=== PATIENT | female | born 1960 | race Caucasian/White ===

== ENCOUNTER 2018-03-20 14:45 | Observation (INO) | payer OTHER ==
[~2018-03-20 14:45] MED LIST: ALBU0.08 NEB; ALBU0.086 INH; ALBU6.7H INH; AMLO5TAB96 PO; ASPI-94 PO; ATOR20TA PO; ATOR40TA16 PO; BENA20TA PO; COLA100C5 PO; DOCU1CAP39 PO; IBUP1TAB7 PO; IBUP400T20 PO; LORTA10 PO; LORTA5 PO; MILKSUS PO; MILKSUS5 PO; MONT10 PO; MONT10TA4 PO; NEXI10GR PO; NEXI40CA PO; NITR0.4S SL; RANI300T PO; SPIRCAP INH; SYMB160A INH; TIOT18I INH; TRAM50TA PO; TYLE500T PO; VENTAER INH; VITA-13 PO
[2018-03-20 18:05] VITALS: BP 134/64; PULSE 81; RESP 18; TEMP 98; O2SAT 96
[2018-03-20 18:58] VITALS: O2SAT 98
[2018-03-20] MEDS ORDERED: ONDANSETRON HCL 4 MG/2 ML VIAL IV PUSH PRN (19:00)
[2018-03-20] MEDS ORDERED: ACETAMINOPHEN 500 MG CPLT PO PRN (19:00)
[2018-03-20 19:50] LABS: TROPONIN I LESS THAN 0.02 NG/ML (0.02-0.05)
[2018-03-20 21:27] VITALS: BP 107/70; PULSE 82; RESP 18; TEMP 98.4; O2SAT 96
[2018-03-21 02:00] VITALS: PULSE 82
[2018-03-21] MEDS ORDERED: RESP: ALBUTEROL 2.5 MG/IPRATROPIUM 0.5 MG NEB (PRN) INH (08:15)
[2018-03-21 08:44] VITALS: BP 121/73; PULSE 84; RESP 18; TEMP 98.2; O2SAT 98
[2018-03-21] MEDS ORDERED: ASPIRIN 325 MG TAB PO SCH (09:00)
[2018-03-21] MEDS ORDERED: LISINOPRIL 20 MG TAB PO SCH (09:00)
[2018-03-21] MEDS ORDERED: PANTOPRAZOLE SOD 40 MG DELAYED RELEASE TAB PO SCH (09:00)
[2018-03-21] MEDS ORDERED: FAMOTIDINE 20 MG TAB PO SCH (09:00)
[2018-03-21] MEDS ORDERED: AMLO5TAB2 PO (10:38)
--- NOTE | 2018-03-21 10:57 | HHI.HP ---
HPI Primary Care Physician [facility] Chief Complaint Chest pain History of Present Illness This is a 57-year-old female the presents to ED via private vehicle to the [facility] to be evaluated for chest discomfort. Patient has history of COPD, GERD, hypertension, hyperlipidemia, right pneumothoraces 3 resulting and then a right middle lobectomy in 2012, left upper and lower lobe bullectomy and parietal pleurectomy 2013. States she was diagnosed with Prinzmetal angina 2009. States she had a stress test with abnormal left heart catheterization that revealed normal arteries. She had another heart catheterization 2013 about the same time she had the recurrent pneumothoraces and right middle lobectomy and states that that heart catheterization also was normal. She presents with a complaint of having a squeezing discomfort on a daily basis for 5 times a day for years. States began 2009. Usually lasts 5 or 10 minutes but were concerned yesterday was a lasted about 2 hours. Denies shortness of breath , nausea, or diaphoresis. States the area is tender. States she sees a pain management doctor for chronic costal irritation and inflammation. Denies recent illness. Denies fevers or chills. Patient is not currently not followed up by preschool associate teacher. Medical care is managed through the [facility]. Review of Systems General: Patient denies fevers, chills, and recent travel. HEENT: Patient denies headache, sore throat, difficulty swallowing. Cardiovascular: Has the chest discomfort as mentioned above. Denies sensation of heart beating rapidly or irregularly. No syncope. Denies diaphoresis. Respiratory: Denies shortness of breath or inspirational chest discomfort. Denies coughing wheezing or hemoptysis. GI: Patient denies nausea, vomiting, diarrhea, abdominal pain, bloody stools. Musculoskeletal: Patient denies joint pain or edema. Denies calf pain or edema. Neurovascular: Patient denies numbness, tingling, weakness in extremities. Denies headache. Endocrine: Denies polyuria and polydipsia. Hematologic: Denies easy bruising. Skin: Denies rash or itching. Past Family Social History Allergies: Coded Allergies: metoprolol (Verified Allergy, Severe, 03/20/18) No Known Allergies (Unverified Allergy, Unknown, 03/20/18) Past Medical History Hypertension, hyperlipidemia, GERD, COPD, recurrent right pneumothoraces resulting in a right middle lobectomy in 2012, left upper and lower lobe bullectomy and parietal pleurectomy 2013. Had heart catheterization in 2009 and 2012 or 14 that she states were both normal. Denies known coronary artery disease. Denies diabetes. Past Surgical History Heart catheterization 2 without interventions. Right middle lobe lobectomy 2012. Left upper and lower lobe bullectomy and parietal pleurectomy in 2013. Tubal ligation. Reported Medications Reported Meds & Active Scripts Active Reported Amlodipine (Amlodipine Besylate) 5 Mg Tab 5 Mg PO DAILY Benazepril (Benazepril HCl) 20 Mg Tab 20 Mg PO DAILY Atorvastatin (Atorvastatin Calcium) 40 Mg Tab 40 Mg PO HS Symbicort Inh (Budesonide/Formoterol Fumarate) 160-4.5 Mcg/Act Aero 2 Puff INH Q12HR Ventolin Hfa 18 GM Inh (Albuterol Sulfate) 90 Mcg/Act Aer 2 Puff INH Q4-6H PRN Albuterol Neb (Albuterol Sulfate) 2.5 Mg/3 Ml Neb 2.5 Mg NEB ONCE Colace (Docusate Sodium) 100 Mg Capsule 100 Mg PO HS Nexium (Esomeprazole DR) 40 Mg Capdr 40 Mg PO DAILY Ibuprofen 800 Mg Tab 800 Mg PO Q6HR PRN Milk of Magnesia Liq (Magnesium Hydroxide) 400 Mg/5 Ml Susp 30 Ml PO DAILY PRN Montelukast (Montelukast Sodium) 10 Mg Tab 10 Mg PO HS Nitrostat SL (Nitroglycerin) 0.4 Mg Subl 0.4 Mg SL ONCE Ranitidine (Ranitidine HCl) 300 Mg Tab 300 Mg PO HS Spiriva Handihaler (Tiotropium Inh) 18 Mcg Cap 18 Mcg INH DAILY 1 capsule = 18 mcg Active Ordered Medications Current Medications Medications (Trade) Dose Ordered Sig/Henry Route Start Time Stop Time Status Last Admin (Tylenol) 500 mg Q4H PRN PO 03/20/18 19:00 (Zofran Inj) 4 mg Q6H PRN IV PUSH 03/20/18 19:00 (Aspirin) 325 mg DAILY PO 03/21/18 09:00 03/21/18 09:00 (Lipitor) 40 mg HS PO 03/21/18 21:00 (Prinivil) 20 mg DAILY PO 03/21/18 09:00 (Protonix) 40 mg DAILY PO 03/21/18 09:00 03/21/18 09:00 (Pepcid) 20 mg BID PO 03/21/18 09:00 03/21/18 09:00 (Duoneb Neb) 1 ampule Q4HR NEB PRN INH 03/21/18 08:15 Family History Denies family history of CAD. Social History Lifetime non-smoker. Denies alcohol or illicit drug use. Physical Exam Vital Signs Vital Signs Date Time Temp Pulse Resp B/P (MAP) Pulse Ox O2 Delivery O2 Flow Rate FiO2 03/21/18 08:44 98.2 84 18 121/73 (89) 98 03/21/18 05:08 21 03/21/18 02:00 82 03/20/18 21:27 98.4 82 18 107/70 (82) 96 03/20/18 18:58 98 21 03/20/18 18:05 98.0 81 18 134/64 (87) 96 Physical Exam GENERAL: This is a well-nourished, well-developed patient, in no apparent distress. Patient speaks in clear complete sentences. Patient is pleasant. HEENT: Head is atraumatic and normocephalic. Neck is supple without lymphadenopathy and trachea is midline. No JVD or carotid bruits. CARDIOVASCULAR: Regular rate and rhythm without murmurs, gallops, or rubs. RESPIRATORY: Clear to auscultation. Breath sounds equal bilaterally. No wheezes , rales, or rhonchi. Chest wall is tender, and this is the same type of discomfort she has been having. No use of accessory muscles. GASTROINTESTINAL: Abdomen is nontender, nondistended. Abdomen soft. No obvious pulsatile mass or bruit. No CVA tenderness. Strong femoral pulses bilaterally. Normal bowel sounds in all quadrants. MUSCULOSKELETAL: Patient is moving upper and lower extremities freely. No calf tenderness or edema, no Homans sign. Strong pulses in upper and lower extremities. NEUROLOGICAL: Patient is alert and oriented. Cranial nerves 2-12 are grossly intact. No focal deficits and speech is clear. SKIN: No rash and turgor is normal. Laboratory Laboratory Tests Test 03/20/18 19:00 Total Creatine Kinase 120 Creatine Kinase MB 1.5 Troponin I LESS THAN 0.02 Imaging Chest x-ray reveals nothing acute. Course EKGs are sinus rhythm without significant ST segment depressions or elevations. Caprini VTE Risk Assessment Caprini VTE Risk Assessment: No/Low Risk (score <= 1) Caprini Risk Assessment Model Point Value = 1 Point Value = 2 Point Value = 3 Point Value = 5 Age 41-60 Minor surgery BMI > 25 kg/m2 Swollen legs Varicose veins or History of unexplained or recurrent spontaneous Oral contraceptives or hormone replacement Sepsis (< 1 month) Serious lung disease, including pneumonia (< 1 month) Abnormal pulmonary function Acute myocardial infarction Congestive heart failure (< 1 month) History of inflammatory bowel disease Medical patient at bed rest Age 61-74 Arthroscopic surgery Major open surgery (> 45 min) Laparoscopic surgery (> 45 min) Malignancy Confined to bed (> 72 hours) Immobilizing plaster cast Central venous access Age >= 75 History of VTE Family history of VTE Factor V Leiden Prothrombin [id number] Lupus anticoagulant Anticardiolipin antibodies Elevated serum homocysteine Heparin-induced thrombocytopenia Other congenital or acquired thrombophilia Stroke (< 1 month) Elective arthroplasty Hip, pelvis, or leg fracture Acute spinal cord injury (< 1 month) Prophylaxis Regimen Total Risk Factor Score Risk Level Prophylaxis Regimen 0-1 Low Early ambulation 2 Moderate Order ONE of the following: *Sequential Compression Device (SCD) *Heparin 5000 units SQ BID 3-4 Higher Order ONE of the following medications: *Heparin 5000 units SQ TID *Enoxaparin/Lovenox 40 mg SQ daily (WT < 150 kg, CrCl > 30 mL/min) *Enoxaparin/Lovenox 30 mg SQ daily (WT < 150 kg, CrCl > 10-29 mL/min) *Enoxaparin/Lovenox 30 mg SQ BID (WT < 150 kg, CrCl > 30 mL/min) AND/OR *Sequential Compression Device (SCD) 5 or more Highest Order ONE of the following medications: *Heparin 5000 units SQ TID (Preferred with Epidurals) *Enoxaparin/Lovenox 40 mg SQ daily (WT < 150 kg, CrCl > 30 mL/min) *Enoxaparin/Lovenox 30 mg SQ daily (WT < 150 kg, CrCl > 10-29 mL/min) *Enoxaparin/Lovenox 30 mg SQ BID (WT < 150 kg, CrCl > 30 mL/min) AND *Sequential Compression Device (SCD) Assessment and Plan Assessment and Plan * Atypical chest pain: Patient has had serial cardiac enzymes and EKGs for ruling out purposes. She was seen by Dr. Montana of cardiology in the [facility]. Her symptoms appear to be musculoskeletal and she has had 2 normal heart catheterizations with the most recently being about 4 years ago. Show no further testing at this time. She will be discharged home with instructions to resume all medications [facility] * Hypertension: Continue medication. * Hyperlipidemia: Continue medication. * GERD: Continue medication. * COPD: Continue medication. Patient is stable at this time. She is agreeable to this plan. Pan Bright March 21, 2018 10:57
--- NOTE | 2018-03-21 11:03 | HHI.DCPOC ---
Discharge Care Plan Diagnosis: (1) Chest pain, atypical (2) Hypertension (3) Hyperlipidemia (4) GERD (gastroesophageal reflux disease) (5) COPD (chronic obstructive pulmonary disease) Goals to Promote Your Health * To prevent worsening of your condition and complications * To maintain your health at the optimal level Directions to Meet Your Goals Take your medications as prescribed Follow your dietary instruction Follow activity as directed Keep your appointments as scheduled Take your immunizations and boosters as scheduled If your symptoms worsen call your PCP, if no PCP go to Urgent Care Center or Emergency Room Smoking is Dangerous to Your Health. Avoid second hand smoke Call the 24-hour hour crisis hotline for domestic abuse at Pan Bright March 21, 2018 11:03
--- NOTE | 2018-03-21 13:58 | EKG ---
Date Performed: 03/20/2018 Time Performed: 18:54:11 PTAGE: 57 years EKG: Sinus rhythm NORMAL ECG PREVIOUS TRACING : 05/12/2014 06.59 Since previous tracing, no significant change noted DOCTOR: Miguel Angel Montana Interpretating Date/Time 03/21/2018 13:56:59
[2018-03-21] MEDS ORDERED: ATORVASTATIN 40 MG TAB PO SCH (21:00)
[2018-03-22] MEDS ORDERED: amLODIPine BESYLATE 5 MG TAB PO SCH (09:00)
== END 2018-03-21 14:01 | disposition home or self-care (01) ==
LOC: NEDDLT 17:35 → NEPGCP 17:45
DX: R07.89 Other chest pain (principal); E78.5 Hyperlipidemia, unspecified; J44.9 Chronic obstructive pulmonary disease, unspecified; K21.9 Gastro-esophageal reflux disease without esophagitis; I10 Essential (primary) hypertension; R79.1 Abnormal coagulation profile; R06.02 Shortness of breath
CPT/HCPCS: 71046; 80053; 82550; 82552; 83735; 83880; 84484; 85025; 85379; 85610; 85730; 93005; 99285; G0378